=== PATIENT | female | born 1955 | race Caucasian/White ===

== ENCOUNTER 2018-01-05 05:05 | Inpatient (IN) | payer OTHER ==
[~2018-01-05] VITALS: Ht 174 cm; Wt 57.8 kg
[2018-01-05] MEDS ORDERED: MULTTAB67 PO (05:36)
[2018-01-05] MEDS ORDERED: VANCOMYCIN HCL 1000 MG VIAL ONE (05:43)
[2018-01-05] MEDS ORDERED: SODIUM CHLOR 0.9% 250 ML INJ 250 ML ONE (05:44)
[2018-01-05] MEDS ORDERED: POVIDONE IODINE 5% (ANTISEPSIS KIT) 4 APPLICATIONS EACH NARE PRN (05:45)
[2018-01-05] MEDS ORDERED: LACTATED RINGER'S 1000 ML IV PRN (05:45)
[2018-01-05] MEDS ORDERED: metroNIDAZOLE 500 MG INJ 100 ML IV SCH (05:45)
[2018-01-05] MEDS ORDERED: ALVIMOPAN 12 MG CAPSULE - On Call PO SCH (05:45)
[2018-01-05] MEDS ORDERED: VANCOMYCIN 1 GM/200 ML PREMIX ON-CALL IV SCH (05:45)
[2018-01-05] MEDS ORDERED: METOPROLOL TARTRATE 25 MG TAB PO PRN (05:45)
[2018-01-05] MEDS ORDERED: SODIUM CHLORID 0.9% 500 ML IV PRN (05:45)
[2018-01-05] MEDS ORDERED: ACETAMINOPHEN 1000 MG/100 ML 100 ML IV SCH (05:45)
[2018-01-05] MEDS ORDERED: CHLORHEXIDINE GLUCONATE 2 % 1 PACK (2 CLOTHS) TOPICAL PRN (05:45)
[2018-01-05] MEDS ORDERED: MIDAZOLAM HCL 2 MG/2 ML VIAL ONE ×2 (06:37→12:29)
[2018-01-05] MEDS ORDERED: GLUCAGON 1 MG/ML VIAL ONE (06:51)
[2018-01-05] MEDS ORDERED: BUPIVACAINE/EPINEPHRINE 0.25% 50 ML VIAL ONE (06:51)
[2018-01-05] MEDS ORDERED: DEXAMETHASONE SOD PHOS 4 MG/ML VIAL IV ONE (12:00)
[2018-01-05] MEDS ORDERED: SODIUM CHLORIDE 0.9% 20 ML VIAL IV ONE (12:00)
[2018-01-05] MEDS ORDERED: LIDOCAINE HCL 1% PF 5 ML SYRINGE OTHER ONE (12:00)
[2018-01-05] MEDS ORDERED: PROPOFOL 200 MG/20 ML AMP IV ONE (12:00)
[2018-01-05] MEDS ORDERED: VECURONIUM BROMIDE 20 MG VIAL IV ONE (12:00)
[2018-01-05] MEDS ORDERED: LACTATED RINGER'S 1000 ML INJ 2,000 ML IV ONE (12:00)
[2018-01-05] MEDS ORDERED: ROCURONIUM INJ 50 MG/5 ML SYRINGE IV PUSH ONE (12:00)
[2018-01-05] MEDS ORDERED: GLYCOPYRROLATE 1 MG/5 ML SYRINGE IV PUSH ONE (12:00)
[2018-01-05] MEDS ORDERED: PHENYLEPH/NS 1000 MCG/10 ML SYR IV ONE (12:00)
[2018-01-05] MEDS ORDERED: ONDANSETRON HCL 4 MG/2 ML VIAL IV ONE (12:00)
[2018-01-05] MEDS ORDERED: STERILE WATER FOR INJECTION 20 ML VIAL IV ONE (12:00)
[2018-01-05] MEDS ORDERED: NEOSTIGMINE 5 MG/5 ML SYRINGE IV PUSH ONE (12:00)
[2018-01-05] MEDS ORDERED: NALOXONE HCL 0.4 MG/ML AMP IV PUSH PRN ×2 (12:15→12:30)
--- NOTE | 2018-01-05 12:19 | PD.OP ---
cc: Ramon Hanson MD; Demetrio Carranza MD Operative Report Date of Surgery: Jan 05, 2018 Preoperative Diagnosis: (1) High grade dysplasia in colonic adenoma Postoperative Diagnosis: (1) High grade dysplasia in colonic adenoma Procedure: Robot assisted laparoscopic low anterior resection Anesthesia: GETA Surgeon: Ramon Hanson Bone Worker(s): Denis Reeves DIRECTOR OF PEOPLE Operation and Findings: EBL: 100 cc Operative findings: A 5 cm friable mass in upper rectum 15 cm from the anus. Procedure in detail: The patient was taken to the operating room and placed in the supine position and lithotomy with yellow fin stirrups. Gen. endotracheal anesthesia was induced. The abdomen was prepped and draped in usual sterile fashion and a surgical timeout was performed to verify correct patient procedure and site. She was administered appropriate preoperative antibiotics. An 12 mm incision was made in the right midabdomen just superior to the umbilicus and the abdomen was entered directly using the 5 mm optiview trocar. The abdomen was insufflated to 15 mmHg with CO2 gas which the patient tolerated well. A 12 mm robotic port was placed in the right lower quadrant about 3 cm superior and medial to the ASIS. An 8 mm trocar was placed in the left mid lateral abdomen. A 5 mm port was placed as an assistant golf professional port in the right upper abdomen. In the left upper abdomen an 8 mm robotic trocar was placed. Finally, the umbilical port was changed to a 12 mm port. The patient was placed in steep Trendelenburg position and leaned to the left. The small bowel was brought out of the pelvis. Next the da Mara robot was docked. The ureter was identified along its course in the left lower abdomen without requiring any dissection. The mass in the colon was visualized. It was actually the upper rectum just below the pelvic brim and above the peritoneal reflection. Tattooing distally was present.. The rigid sigmoidoscope was introduced by Dr. Barnett and the mass visualized. This was measured to be at 15 cm from the anus. The sigmoid vessels were dissected circumferentially and divided using the vessel sealer device. The left colic artery was not divided Attention was turned to the rectum and the presacral space was opened along the upper rectum. Peritoneum was divided laterally and the upper lateral attachments were divided. The mesorectum was divided nearly to the level of the pelvic floor in order to have adequate room distal to the mass.. The rectum was then able to be straightened out of the pelvis. The mesorectum in the mid rectum was divided with the vessel sealer. The mid rectum itself was divided with a blue load using the da Mara robotic stapler. This required 2 fires of the stapler. The remaining mesentery of the upper rectum and sigmoid colon was divided using the hook electrocautery. The deep mesentery to the proximal sigmoid colon was divided at the vessel sealer. The right lower quadrant robotic port was undocked. A 5 cm Pfannenstiel incision was then made. The Luis Enrique wound retractor was placed. The colon was brought up through the incision. This was divided using the pursestring device at the distal descending colon/proximal sigmoid. The specimen including the was then removed from the table. The sizers were used and the 29 EEA stapler was chosen and opened. The anvil was placed in this distal descending colon with a pursestring suture. It was placed back into the abdomen. The Luis Enrique wound retractor was placed. The robot was re-docked. The rigid sigmoidoscope was placed through the anus to the end of the rectal stump. The 29 EEA stapler was then placed into the rectal stump. The stapler was opened through the rectum just superior to the staple line. The distal descending colon and anvil was placed onto the stapler and it was fired. There was no leak after re-insufflating the anastomotic site with saline in the pelvis. There was no tension or hematoma present. The anastomosis was noted to be at approximately 10 cm from the anus. The da Mara robot was then undocked. The fascia at the 12 mm site was closed with 0 Vicryl suture. The fascia at the Pfannenstiel incision was closed with with running #1 PDS in 2 layers. The incision was irrigated. Skin was closed with 4-0 subcuticular Monocryl as well as Dermabond. The patient tolerated procedure well was extubated and taken to PACU in stable condition. Ramon Hanson MD Jan 05, 2018 12:19
[2018-01-05] MEDS ORDERED: *morphine SULFATE 4 MG/ML PERIprocedure ONLY ONE ×2 (12:24→12:28)
[2018-01-05] MEDS ORDERED: DO NOT ADM ANY ANTICOAGULANT DRUGS PRN (12:24)
[2018-01-05] MEDS ORDERED: HYDROmorphone HCL PCA 6 MG/30 ML IV ONE (12:30)
[2018-01-05] MEDS ORDERED: diphenhydrAMINE HCL 50 MG/ML VIAL IV PUSH PRN (12:30)
[2018-01-05] MEDS: PANTOPRAZOLE SODIUM 40 MG VIAL IV PUSH SCH (12:30)
[2018-01-05] MEDS ORDERED: ONDANSETRON HCL 4 MG/2 ML VIAL IV PUSH PRN (12:30)
[2018-01-05] MEDS ORDERED: SODIUM CHLORIDE 0.9% FLUSH 10 ML FLUSH IV FLUSH PRN (12:30)
[2018-01-05] MEDS ORDERED: HYDROmorphone HCL PF 2 MG/ML VIAL ONE (12:33)
[2018-01-05] MEDS ORDERED: Post-op Orders (for Pharmacy) XX ONE (13:00)
[2018-01-05] MEDS: ACETAMINOPHEN 1000 MG/100 ML 100 ML IV SCH ×2 (13:00→14:08)
[2018-01-05] MEDS: KETOROLAC TROMETHAMINE 30 MG/ML (IVP) VIAL IV PUSH SCH ×2 (13:00→17:59)
[2018-01-05] MEDS: HYDROmorphone HCL PCA 6 MG/30 ML IV SCH (13:58)
[2018-01-05] MEDS: LACTATED RINGER'S 1000 ML INJ 1,000 ML IV SCH ×2 (14:07→20:19)
[2018-01-05] MEDS ORDERED: *ONDANSETRON 4 MG VIAL PERIprocedural Use ONLY ONE (16:01)
[2018-01-05 20:00] VITALS: BP 118/81; PULSE 83; RESP 18; TEMP 97; O2SAT 99
[2018-01-05] MEDS: PCA - TOTAL MG DILAUDID DELIVERED PER SHIFT OTHER SCH (20:19)
[2018-01-05] MEDS: SODIUM CHLORIDE 0.9% FLUSH 10 ML FLUSH IV FLUSH SCH (20:19)
[2018-01-05] MEDS ORDERED: ZOLPIDEM TARTRATE 5 MG TAB PO PRN (21:00)
[2018-01-06] VITALS (8 sets, daily range): BP systolic 101–145; BP diastolic 64–77; PULSE 72–98; RESP 17–20; TEMP 95.7–99; O2SAT 92–99
[2018-01-06] MEDS: LACTATED RINGER'S 1000 ML INJ 1,000 ML IV SCH ×3 (02:28→23:41)
[2018-01-06] MEDS: KETOROLAC TROMETHAMINE 30 MG/ML (IVP) VIAL IV PUSH SCH ×5 (02:35→23:41)
[2018-01-06] MEDS: ACETAMINOPHEN 1000 MG/100 ML 100 ML IV SCH ×2 (02:35→06:35)
[2018-01-06] MEDS: PCA - TOTAL MG DILAUDID DELIVERED PER SHIFT OTHER SCH ×3 (06:00→20:46)
[2018-01-06] MEDS: HYDROmorphone HCL PCA 6 MG/30 ML IV SCH ×2 (06:57→23:53)
[2018-01-06 07:55] LABS: AUTOMATED NEUTROPHIL # 6.4 TH/MM3 (1.8-7.7); BASOPHIL % 0.1 % (0.0-2.0); EOSINOPHIL % 0.2 % (0.0-4.0); HEMATOCRIT 32.9 % (35.0-46.0); HEMOGLOBIN 11.3 GM/DL (11.6-15.3); LYMPH % 15.9 % (9.0-44.0); LYMPHOCYTE # 1.4 TH/MM3 (1.0-4.8); MEAN CELL VOLUME 89.8 FL (80.0-100.0); MEAN CORPUSCULAR HEMOGLOBIN 30.9 PG (27.0-34.0); MEAN CORPUSCULAR HGB CONC 34.4 % (32.0-36.0); MONO % 10.2 % (0.0-8.0); MONOCYTE # 0.9 TH/MM3 (0-0.9); NEUT % 73.6 % (16.0-70.0); PLATELET COUNT 297 TH/MM3 (150-450); RED BLOOD COUNT 3.66 MIL/MM3 (4.00-5.30); RED CELL DISTRIBUTION WIDTH 12.3 % (11.6-17.2); WHITE BLOOD COUNT 8.7 TH/MM3 (4.0-11.0)
[2018-01-06 08:16] LABS: CALCIUM 8.3 MG/DL (8.5-10.1); CREATININE 0.49 MG/DL (0.50-1.00)
[2018-01-06] MEDS: SODIUM CHLORIDE 0.9% FLUSH 10 ML FLUSH IV FLUSH SCH ×2 (09:39→20:46)
[2018-01-06] MEDS: ALVIMOPAN 12 MG CAPSULE - Post-op dosing PO SCH ×2 (09:39→20:46)
--- NOTE | 2018-01-06 10:42 | HHI.PR ---
Subjective Subjective Notes No complaints. Belching some. Pain controlled with COMPONENT PREP OPERATOR. Objective Vitals/I&O Vital Signs Date Time Temp Pulse Resp B/P (MAP) Pulse Ox O2 Delivery O2 Flow Rate FiO2 01/06/18 09:33 99 Nasal Cannula 21 01/06/18 08:00 97.6 72 17 130/77 (94) 01/05/18 16:00 3 Labs Laboratory Tests Test 01/06/18 07:06 White Blood Count 8.7 Red Blood Count 3.66 Hemoglobin 11.3 Hematocrit 32.9 Mean Corpuscular Volume 89.8 Mean Corpuscular Hemoglobin 30.9 Mean Corpuscular Hemoglobin Concent 34.4 Red Cell Distribution Width 12.3 Platelet Count 297 Mean Platelet Volume 8.0 Neutrophils (%) (Auto) 73.6 Lymphocytes (%) (Auto) 15.9 Monocytes (%) (Auto) 10.2 Eosinophils (%) (Auto) 0.2 Basophils (%) (Auto) 0.1 Neutrophils # (Auto) 6.4 Lymphocytes # (Auto) 1.4 Monocytes # (Auto) 0.9 Eosinophils # (Auto) 0.0 Basophils # (Auto) 0.0 CBC Comment DIFF FINAL Differential Comment Blood Urea Nitrogen 7 Creatinine 0.49 Random Glucose 95 Calcium Level 8.3 Sodium Level 138 Potassium Level 3.8 Chloride Level 104 Carbon Dioxide Level 27.0 Anion Gap 7 Estimat Glomerular Filtration Rate 127 Narrative Exam NAD Abd: soft, mild distention, inc c/d/i [place] clear urine A/P Assessment and Plan 62 yo F POD 1 s/p LAR for upper rectal cancer Stable post op. D/c [place] Fulls DVT proph: SCDs. [place] Valentin,Ramon WINSTON Jan 06, 2018 10:41
[2018-01-06] MEDS: ENOXAPARIN SODIUM 40 MG/0.4 ML SYRINGE SQ SCH (12:43)
[2018-01-06] MEDS: PANTOPRAZOLE SODIUM 40 MG VIAL IV PUSH SCH (12:44)
[2018-01-07] VITALS (7 sets, daily range): BP systolic 131–151; BP diastolic 77–91; PULSE 76–97; RESP 17–20; TEMP 97.2–99.1; O2SAT 95–98
[2018-01-07] MEDS: PCA - TOTAL MG DILAUDID DELIVERED PER SHIFT OTHER SCH (05:07)
[2018-01-07] MEDS: KETOROLAC TROMETHAMINE 30 MG/ML (IVP) VIAL IV PUSH SCH ×3 (05:07→18:48)
[2018-01-07] MEDS: SODIUM CHLORIDE 0.9% FLUSH 10 ML FLUSH IV FLUSH SCH ×2 (09:00→20:59)
[2018-01-07] MEDS: ALVIMOPAN 12 MG CAPSULE - Post-op dosing PO SCH ×2 (09:59→20:59)
--- NOTE | 2018-01-07 12:35 | HHI.PR ---
Subjective Subjective Notes + flatus. No complaints. Pain controlled. Tolerating fulls. Objective Vitals/I&O Vital Signs Date Time Temp Pulse Resp B/P (MAP) Pulse Ox O2 Delivery O2 Flow Rate FiO2 01/07/18 11:34 95 01/07/18 08:00 97.2 76 19 131/90 (104) 01/06/18 17:53 21 01/06/18 09:33 Nasal Cannula 01/05/18 16:00 3 Narrative Exam NAD Abd: soft, mild distention, inc c/d/i A/P Assessment and Plan 62 yo F POD 2 s/p LAR for upper rectal cancer Stable post op. Soft diet. D/c WATER PLANT MAINTENANCE MECHANIC. Percocet. DVT proph: SCDs. Ramon Pruett MD Jan 07, 2018 12:35
[2018-01-07] MEDS ORDERED: MORPHINE SULFATE 4 MG/ML INJ IV PUSH PRN (12:45)
[2018-01-07] MEDS ORDERED: oxyCODONE/ACETAMINOPHEN 5 MG/325 MG TAB PO PRN ×2 (12:45)
[2018-01-07] MEDS: PANTOPRAZOLE SODIUM 40 MG VIAL IV PUSH SCH (12:54)
[2018-01-07] MEDS: ENOXAPARIN SODIUM 40 MG/0.4 ML SYRINGE SQ SCH (12:55)
[2018-01-08] VITALS: BP 143/92; PULSE 80; RESP 20; TEMP 98.3; O2SAT 97
[2018-01-08] MEDS: KETOROLAC TROMETHAMINE 30 MG/ML (IVP) VIAL IV PUSH SCH ×2 (00:31→07:23)
[2018-01-08] MEDS: SODIUM CHLORIDE 0.9% FLUSH 10 ML FLUSH IV FLUSH SCH (07:56)
[2018-01-08] MEDS: ALVIMOPAN 12 MG CAPSULE - Post-op dosing PO SCH (07:58)
[2018-01-08 08:00] VITALS: BP 144/99; PULSE 71; RESP 19; TEMP 97.4; O2SAT 97
[2018-01-08] MEDS ORDERED: OXYC1TAB63 PO (08:11)
--- NOTE | 2018-01-08 09:21 | HHI.DS ---
Discharge Summary Admission Date Jan 05, 2018 at 05:05 Discharge Date: Jan 08, 2018 Admitting Diagnosis Dysplastic sigmoid polyp (1) Dysplastic rectal polyp ICD Codes: K62.1 - Rectal polyp Procedures Robot assisted laparoscopic low anterior resection Brief History 62 yo F with h/o blood per rectum s/p colonoscopy revealing large sigmoid polyp with diffuse high grade dysplasia on biopsy. After staging evaluation, she is planned for elective sigmoid resection. CBC/BMP: 01/06/18 0706 01/06/18 0706 Significant Findings Laboratory Tests Test 01/06/18 07:06 Red Blood Count 3.66 MIL/MM3 (4.00-5.30) Hemoglobin 11.3 GM/DL (11.6-15.3) Hematocrit 32.9 % (35.0-46.0) Neutrophils (%) (Auto) 73.6 % (16.0-70.0) Monocytes (%) (Auto) 10.2 % (0.0-8.0) Creatinine 0.49 MG/DL (0.50-1.00) Calcium Level 8.3 MG/DL (8.5-10.1) PE at Discharge NAD Abd: soft, nondistended, inc c/d/i Hospital Course During operation large polyp was noted to be in upper rectum and LAR was performed. Post op she has done well, initially tolerating clears then fulls and soft diet. No nausea. Pain controlled with ELECTRIC CONTAINER TESTER then toradol alone. + flatus. Pt Condition on Discharge: Good Discharge Disposition: Discharge Home Discharge Instructions DIET: Follow Instructions for: As Tolerated, No Restrictions Activities you can perform: See Additionl Instruction Other Activity Instructions: No heavy lifiting. No driving while on narcotics. Ok to shower. New Medications: Oxycodone HCl/Acetaminophen (Oxycodone-Acetaminophen 5-325) 5 Mg-325 Mg Tablet 1-2 TAB PO Q4H PRN for PAIN, #30 TAB Valentin,Ramon WINSTON Jan 08, 2018 09:21
[2018-01-08 12:00] VITALS: BP 161/105; PULSE 94; RESP 19; TEMP 98.2; O2SAT 98
== END 2018-01-08 14:00 | disposition home or self-care (01) | DRG 331 ==
LOC: HSDI 05:05 → EDSTATUS 07:30 → N07A 16:16
PROVIDERS: ADMIT Surgery; ATTEND Surgery
PROC: 0DBP4ZZ Excision of Rectum, Percutaneous Endoscopic Approach (ICD-10-PCS; 2018-01-05)
PROC: 07BC4ZX Excision of Pelvis Lymphatic, Percutaneous Endoscopic Approach, Diagnostic (ICD-10-PCS; 2018-01-05)
PROC: 8E0W4CZ Robotic Assisted Procedure of Trunk Region, Percutaneous Endoscopic Approach (ICD-10-PCS; 2018-01-05)
PROC: 0DJD8ZZ Inspection of Lower Intestinal Tract, Via Natural or Artificial Opening Endoscopic (ICD-10-PCS; 2018-01-05)
PROC: 3E0T3BZ Introduction of Anesthetic Agent into Peripheral Nerves and Plexi, Percutaneous Approach (ICD-10-PCS; 2018-01-05)
PROC: 3E0T3BZ Introduction of Anesthetic Agent into Peripheral Nerves and Plexi, Percutaneous Approach (ICD-10-PCS; 2018-01-05)
PROC: 0DBN4ZZ Excision of Sigmoid Colon, Percutaneous Endoscopic Approach (ICD-10-PCS; principal; 2018-01-05 07:13)
DX: K62.1 Rectal polyp (principal)
CPT/HCPCS: 80048; 85025; 86850; 86900; 86901; 88307; 88309; 94150; C9113; J0131; J1100; J1170; J1610; J1650; J1885; J2250; J2270; J2370; J2405; J2710; J3010; J3370; J7050; J7120